=== PATIENT | male | born 1975 ===

== ENCOUNTER 2025-01-03 15:24 | Outpatient (AMB) | payer MEDICAID, SELFPAY ==
--- NOTE | 2025-01-03 15:30 | ACNOTE_ITS ---
Vital Signs 01/03/25 15:31 Height 1.7 m Height Method Stated Weight 94.404 kg Weight Measurement Method Standing Scale BMI 32.5 BP 146/84 H Blood Pressure Source Automatic Cuff Blood Pressure Location Left Upper Arm Position Sitting Respiration 16 Pulse 93 Pulse Source Monitor Temp 97 F Temp Source Temporal Artery Scan Pulse Oximetry (%) 97 Oxygen Delivery Method Room Air Allergies/Meds Allergies & Medications Allergies No Known Allergies Allergy (Verified 01/03/25 15:32) Medication Reconciliation fluticasone propionate 50 mcg/actuation nasal spray,suspension (Flonase Allergy Relief) 2 spray intranasal QDAY #16 grams 11/17/22 [Rx Confirmed 01/03/25] ibuprofen 800 mg tablet 800 mg PO Q8H PRN pain #30 tabs 11/28/22 [Rx Confirmed 01/03/25] hydrocodone 5 mg-acetaminophen 325 mg tablet 1 tab PO Q6H PRN pain #30 tabs 01/03/25 [Rx] MA Intake Visit Data Collection New Patient or Established: Established Patient (seen at [facility] within 3 years) Seen by Clinical Staff ONLY (RN/MA): No Pain Present Currently: No Pain scale:: 0 Pain Scale Used: Carvajal-Salazar/Numerical Applications Coordinator Required: No PCP or OBGYN visit in last 3 months: No Hx Now: No Do You Feel Safe at Home: Yes Authorities Contacted: N/A Smoking Status Smoking Status: Never smoker Immunization / Flu Flu Vaccine in the Last 12 Months: No Flu Vaccine Exclusion Criteria: No Exclusion Criteria Past Medical History Past Medical History NEUROLOGIC: Negative Neurological Disorders or Seizures CARDIAC: Negative Cardiac Disorders or Congestive Heart Failure RESPIRATORY: Negative Chronic Obstructive Pulmonary Disease (COPD) or Asthma GASTROINTESTINAL: Negative Gastrointestinal Disorders GENITOURINARY: Positive Genitourinary Disorders and Benign Prostatic Hyperplasia; Negative Renal Disease MUSCULOSKELETAL: Positive Arthritis ENDOCRINE: Negative Endocrine Disorders, Diabetes Mellitus Type 1 or Diabetes Mellitus Type 2 HEMATOLOGIC: Negative Blood Disorders or Sickle Cell Disease OTHER HISTORY: Positive Chicken Pox; Negative Blood Transfusions, Blood Transfusion Reaction, MRSA or Cancer Family History FAMILY HISTORY: Negative Family Cardiac Disorders or Family Cancer Social History SMOKING STATUS: Smoking status: Never smoker SECOND HAND EXPOSURE: second hand exposure: No ALCOHOL: Alcohol Intake: Current ALCOHOL FREQUENCY: Alcohol Intake Frequency: holidays/special occasions only HOUSING: Housing: House LIVES WITH: Lives With: Family Patient Portal Questionaires PHQ-9 PHQ-2 Over the last 2 weeks, how often have you been bothered by any of the following problems? 1. Little interest or pleasure in doing things: not at all Social History Living Situation History Housing: House Tobacco History Smoking Status: Never smoker Second Hand Smoke Exposure: No Alcohol History Alcohol Intake: Current Alcohol Intake Frequency: holidays/special occasions only Domestic Abuse History Do You Feel Safe at Home: Yes Review of Systems Report any current symptoms Only answer those that you have currently: Past Medical History Past Medical History Have you ever been diagnosed with any of the following: Neurological Problems Seizures: No Cardiology Problems Congestive Heart Failure: No Respiratory Problems Chronic Obstructive Pulmonary Disease (COPD): No Asthma: No Genital/Urinary Problems Renal Disease: No Benign Prostatic Hyperplasia: Yes Musculoskeletal Problems Arthritis: Yes Endocrine Problems Diabetes Mellitus Type 1: No Diabetes Mellitus Type 2: No Blood Problems Sickle Cell Disease: No Other Problems Blood Transfusions: No Blood Transfusion Reaction: No MRSA: No Chicken Pox: Yes Cancer: No History of Present Illness HPI Narrative Mr. Fatima is a 49-year-old Vietnamese-speaking male with past medical history of seasonal allergies who presented to [facility] with a chief complaint of right shoulder pain. Patient reported that his pain started on Monday, he was lifting heavy bags of animal feeds, did not experience any swelling, popping sound yet patient's pain was moderate, patient reported following up with [facility] clinic where on mobilization of arm during physical examination, patient's pain increased significantly, severe intensity, today patient seems to be in significant distress secondary to pain, on examination patient unable to elevate shoulder joint more than 30 degrees, patient was prescribed ibuprofen at [facility] which is unable to alleviate patient's pain. Patient did buy bandage from [employer] which he applied to his shoulder, yet has no improvement. Otherwise patient's blood pressure noted to be elevated, patient is in significant distress hence high suspicion of elevation in blood pressure secondary to pain. Will continue to monitor blood pressure. Will obtain x-ray of right shoulder, prescribed [place] as needed for pain and follow-up in clinic after obtaining x-ray. Patient counseled on pain management, pain scale, encouraged to manage pain with extra strength Tylenol for mild pain, ibuprofen for moderate pain and [place] for severe significant pain. Also educated patient about risks of pain medication, counseled to limit NSAID use. Patient verbalized understanding, will follow-up in clinic post x- ray results. Review of Systems Review of Systems Systems Reviewed: All systems reviewed, normal except as documented Objective/Exam Other Other exam information: Physical Exam General: Awake and in no acute distress. Conversational and non-toxic appearing. HEENT: Normocephalic, atraumatic, mucous membranes moist. Heart: Regular rate and rhythm, no murmurs. Lungs: Clear to auscultation with no wheezing or crackles. Abdomen: Soft, nondistended, nontender, positive bowel sounds. ?No guarding or rebound tenderness. Neurologic: Alert and oriented x3, no gross neurological deficit, and patient able to move all 4 extremities. Extremities: Decreased range of motion in right shoulder, patient unable to elevate shoulder joint more than 30 degrees, no swelling/edema noted, no gross dislocation noted. Patient does have shoulder kinesiology tape intact. Skin: No rash or ecchymoses. Assessment & Plan Diagnosis / Problem List (1) Right shoulder pain: Status: Acute Assessment & Plan: Patient has pain in right shoulder post lifting heavy bags of animal feed Did follow-up with [facility] previously, reports worsening pain, increasing progression On physical exam patient unable to elevate shoulder joint more than 30 degrees, no swelling/edema noted, no gross dislocation noted. Patient does have shoulder kinesiology tape intact. Plan: - prescribed [place] as needed for pain. - Patient counseled on pain management, pain scale, encouraged to manage pain with extra strength Tylenol for mild pain, ibuprofen for moderate pain and [place] for severe significant pain. Also educated patient about risks of pain medication, counseled to limit NSAID use. - Obtain right shoulder x-ray - Follow-up in clinic post x-ray - Will consider physical therapy referral/MRI on follow-up visit - Adequate rest, counseled to not sleep on right side, provide adequate rest to joint, patient is right-handed. (2) Elevated blood pressure reading: Status: Acute Assessment & Plan: Patient did have blood pressure reading of 146/84 on presentation, not on any antihypertensive medication Plan: - Patient's elevated blood pressure reading secondary to pain/acute distress - Monitor blood pressure Plan Overall plan: -Prescribed [place] as needed for pain, counseled on pain management -Obtain right shoulder x-ray, follow-up in clinic post x-ray results Case discussed with Attending Dr. Polanco. Aron Bustamante PGY1 Disclaimer: This note was dictated by speech recognition. Minor errors in front end java developer may be present due to voice recognition software. Orders: Orders XR shoulder RT min 2V 01/03/25 M25.519 - Pain in unspecified shoulder Physician Billing New Patient New Patient: E/M Level 2-CPT 50054 Office Procedures [facility] Level of Care Nursing/Assessment Patient Status: Established Patient Nursing Assessment/Reassessment: Medication Reconciliation, Update PMH in EMR and Vital Signs Coordination of Care: Complex Care and Chronic Disease 1-5, Consent,records obtained, informed consent, Education Simp Pt/Fam, Lab and Imaging orders and Staff clarify orders Established Patient Charge Established Patient Point Assignment: 100 Established Patient Point Charge: EP Level 3 (80-115)
[2025-01-03 15:31] VITALS: BP 146/84; PULSE 93; RESP 16; TEMP 36.1; O2SAT 97; BMI 32.5
== END 2025-01-03 16:30 | disposition home or self-care (01) ==
PROVIDERS: Supervising Provider Internal Medicine
DX: M25.511 Pain in right shoulder (principal); R03.0 Elevated blood-pressure reading, without diagnosis of hypertension
CPT/HCPCS: 99213; G0463

== ENCOUNTER → 2025-01-03 | Outpatient (CLI) | payer MEDICAID, SELFPAY ==
--- NOTE | 2025-01-03 16:10 | XR_ITS ---
Examination: Shoulder,right, 3 views Technique: Shoulder AP internal rotation, AP external rotation, Y view shoulder, 3 views Exam date and time :January 03, 2025 1613 hrs. Indications: Chronic shoulder pain. Findings: Opacities about the right acromioclavicular joint, unclear etiology No shoulder fracture or dislocation Moderate narrowing glenohumeral joint Impression: Moderate narrowing glenohumeral joint
== END | disposition home or self-care (01) ==
LOC: CDIM 15:59
PROVIDERS: Referring Provider Internal Medicine; Visit Provider Internal Medicine
DX: M25.811 Other specified joint disorders, right shoulder (principal)
CPT/HCPCS: 73030

== ENCOUNTER 2025-01-06 10:29 | Outpatient (AMB) | payer MEDICAID, SELFPAY ==
[2025-01-06 10:39] VITALS: BP 119/79; PULSE 90; RESP 18; TEMP 36.8; O2SAT 96; BMI 32.7
--- NOTE | 2025-01-06 10:39 | ACNOTE_ITS ---
Vital Signs 01/06/25 10:39 Height 1.7 m Height Method Stated Weight 94.517 kg Weight Measurement Method Standing Scale BMI 32.7 BP 119/79 Blood Pressure Source Automatic Cuff Blood Pressure Location Left Upper Arm Position Sitting Respiration 18 Pulse 90 Pulse Source Monitor Temp 98.2 F Temp Source Temporal Artery Scan Pulse Oximetry (%) 96 Oxygen Delivery Method Room Air Allergies/Meds Allergies & Medications Allergies No Known Allergies Allergy (Verified 01/06/25 10:39) Medication Reconciliation fluticasone propionate 50 mcg/actuation nasal spray,suspension (Flonase Allergy Relief) 2 spray intranasal QDAY #16 grams 11/17/22 [Rx Confirmed 01/06/25] hydrocodone 5 mg-acetaminophen 325 mg tablet 1 tab PO Q6H PRN pain #30 tabs 01/03/25 [Rx Confirmed 01/06/25] meloxicam 7.5 mg tablet 7.5 mg PO QDAY PRN pain (scale score 4-6) 15 days #15 tabs 01/06/25 [Rx] methylprednisolone 4 mg tablets in a dose pack (Medrol (Edi)) 4 mg PO QDAY #21 tabs 01/06/25 [Rx] pantoprazole 40 mg tablet,delayed release 40 mg PO QAM 15 days #20 tabs 01/06/25 [Rx] MA Intake Visit Data Collection New Patient or Established: Established Patient (seen at [facility] within 3 years) Seen by Clinical Staff ONLY (RN/MA): No Pain Present Currently: No Pain scale:: 0 Pain Scale Used: Carvajal-Salazar/Numerical Trial Paralegal Required: Yes PCP or OBGYN visit in last 3 months: Yes Hx Now: No Do You Feel Safe at Home: Yes Authorities Contacted: N/A Smoking Status Smoking Status: Never smoker Immunization / Flu Flu Vaccine in the Last 12 Months: No Flu Vaccine Exclusion Criteria: No Exclusion Criteria Past Medical History Past Medical History NEUROLOGIC: Negative Neurological Disorders or Seizures CARDIAC: Negative Cardiac Disorders or Congestive Heart Failure RESPIRATORY: Negative Chronic Obstructive Pulmonary Disease (COPD) or Asthma GASTROINTESTINAL: Negative Gastrointestinal Disorders GENITOURINARY: Positive Genitourinary Disorders and Benign Prostatic Hyperplasia; Negative Renal Disease MUSCULOSKELETAL: Positive Arthritis ENDOCRINE: Negative Endocrine Disorders, Diabetes Mellitus Type 1 or Diabetes Mellitus Type 2 HEMATOLOGIC: Negative Blood Disorders or Sickle Cell Disease OTHER HISTORY: Positive Chicken Pox; Negative Blood Transfusions, Blood Transfusion Reaction, MRSA or Cancer Family History FAMILY HISTORY: Negative Family Cardiac Disorders or Family Cancer Social History SMOKING STATUS: Smoking status: Never smoker SECOND HAND EXPOSURE: second hand exposure: No ALCOHOL: Alcohol Intake: Current ALCOHOL FREQUENCY: Alcohol Intake Frequency: holidays/special occasions only HOUSING: Housing: House LIVES WITH: Lives With: Family Patient Portal Questionaires PHQ-9 PHQ-2 Over the last 2 weeks, how often have you been bothered by any of the following problems? 1. Little interest or pleasure in doing things: not at all Social History Living Situation History Housing: House Tobacco History Smoking Status: Never smoker Second Hand Smoke Exposure: No Alcohol History Alcohol Intake: Current Alcohol Intake Frequency: holidays/special occasions only Domestic Abuse History Do You Feel Safe at Home: Yes Review of Systems Report any current symptoms Only answer those that you have currently: Past Medical History Past Medical History Have you ever been diagnosed with any of the following: Neurological Problems Seizures: No Cardiology Problems Congestive Heart Failure: No Respiratory Problems Chronic Obstructive Pulmonary Disease (COPD): No Asthma: No Genital/Urinary Problems Renal Disease: No Benign Prostatic Hyperplasia: Yes Musculoskeletal Problems Arthritis: Yes Endocrine Problems Diabetes Mellitus Type 1: No Diabetes Mellitus Type 2: No Blood Problems Sickle Cell Disease: No Other Problems Blood Transfusions: No Blood Transfusion Reaction: No MRSA: No Chicken Pox: Yes Cancer: No History of Present Illness HPI Narrative Mr. Fatima is a 49-year-old Iraqi-speaking male with past medical history of seasonal allergies who presented to [facility] with a chief complaint of right shoulder pain. Patient reported that his pain started on Monday, he was lifting heavy bags of animal feeds, did not experience any swelling, popping sound yet patient's pain was moderate, patient reported following up with [facility] where on mobilization of arm during physical examination, patient's pain increased significantly, severe intensity, today patient seems to be in significant distress secondary to pain, on examination patient unable to elevate shoulder joint more than 30 degrees, patient was prescribed ibuprofen at [facility] which is unable to alleviate patient's pain. Patient did buy bandage from [employer] which he applied to his shoulder, yet has no improvement. Otherwise patient's blood pressure noted to be elevated, patient is in significant distress hence high suspicion of elevation in blood pressure secondary to pain. Will continue to monitor blood pressure. Will obtain x-ray of right shoulder, prescribed [place] as needed for pain and follow-up in clinic after obtaining x-ray. Patient counseled on pain management, pain scale, encouraged to manage pain with extra strength Tylenol for mild pain, ibuprofen for moderate pain and [place] for severe significant pain. Also educated patient about risks of pain medication, counseled to limit NSAID use. Patient verbalized understanding, will follow-up in clinic post x- ray results. 01/06/2025: 49 year old men without significant medical history only seasonal allergies who came for x ray follow up results of right shoulder. x rays shows Moderate narrowing of glenohumeral joint, shoulder fracture or dislocation. Today patient stated feeling well denied any acute pain at the moment but had resolved with ibuprofen he also stated her daughter given some meloxicam and he even feels more relief of the pain he stated that right now pain is between 1?2 and the pain scale and does have recover a lot of range of movement. Otherwise during physical exam with noted pain on range of motion on the right shoulder that could be most likely secondary to impingement vs tear of supraspinatus muscle vs partial rotator cuff tear. Will give patient orthopedic surgeon referral Dr. Sevilla as well as referral for physical therapy. MRI of the right shoulder without contrast to rule out possible rotator cuff tear vs partial rota tor cuff tear. Meloxicam 7.5 g p.o. daily was prescribed for pain control and to stop ibuprofen. Medrol pack was ordered to relieve inflammation as well as Protonix p.o. daily to prevent gastritis. Follow-up in 3 weeks with MRI results. Review of Systems Review of Systems Systems Reviewed: All systems reviewed, normal except as documented Objective/Exam Narrative Physical exam: General: No acute distress, well appearing, alert, interactive. HEENT: NC/AT, PERRL, EOMI, Good conjugate gaze, moist mucous membranes, oropharynx clear. Neck: Supple, No masses, No adenopathy, carotid pulse 2+ bilaterally without bruits, No JVD, normal range of motion. Chest: Symmetrical, atraumatic, and with equal expansion , Nontender on palpation no deformity and no crepitus. CVS: S1 and S2 present, Regular rate and rhythm, No murmurs, rubs or gallops perceived during auscultation. Lungs: Normal respiratory effort, CTAB, no wheezing, rhonchi or rales perceived during auscultation, No intercostal or subcostal retraction. Abdomen : Soft, no tenderness to palpation, no guarding ,no rebound, +BS, no organomegaly. Extremities: No edema, warm well perfused, difficulty to elevate shoulder joint on the right upper extremity above the head strength and sensation intact, decreased range of movement right shoulder cap refill less than 2, +2 dp equal bilaterally, able to move all 4 extremities spontaneously. Skin: Intact, no rashes, no lesions, no erythema or jaundice noted Neuro: AOx4, cranial nerves II through XII intact, symmetric and sensation normal, no focal neurologic deficits noted, GCS 15 Psych: Appropriate mood and affect. Assessment & Plan Diagnosis / Problem List (1) Osteoarthritis of glenohumeral joint: Status: Acute Qualifiers: Laterality: right Qualified Code(s): M19.011 - Primary osteoarthritis, right shoulder Assessment & Plan: Patient came to the clinic for follow-up appointment after acute right shoulder pain after lifting heavy bags Right shoulder x-ray moderate narrowing of glenohumeral joint, shoulder fracture or dislocation. Patient stated that for now the patient had is well-controlled with ibuprofen and some meloxicam she thought it gave him. We will order Medrol pack to reduce inflammation to the patient refused to have intra-articular injection of steroids, we will order orthopedic surgery referral for further evaluation as well as MRI of the shoulder to assess for possible partial tear vs impingement of the supraspinatus vs rotator cuff. Patient was counseled about risk of NSAIDs and steroids and possible adverse effects could be gastritis, GI bleed, dyspepsia and acid reflux. Patient was counseled about risk of opioid pain medications Plan: ? MRI right shoulder without contrast ? Orthopedic surgeon referral Dr. Sevilla ? Physical therapy referral ? Medrol pack ? Meloxicam p.o. as needed pain scale 1?6 ? Stop ibuprofen ? Protonix p.o. daily (2) Right shoulder pain: Status: Acute Qualifiers: Chronicity: acute Qualified Code(s): M25.511 - Pain in right shoulder Assessment & Plan: Patient had acute pain in right shoulder post lifting heavy bags Did follow-up with [facility] initially Right shoulder x ray shows moderate narrowing of glenohumeral joint, shoulder fracture or dislocation. Plan: - Continue [place] as needed for pain 7?10 - Patient counseled on pain management, pain scale, encouraged to manage pain with extra strength Tylenol for mild pain, ibuprofen for moderate pain and [place] for severe significant pain. Orders: Orders MR shoulder RT wo con 01/06/25 M19.011 - Primary osteoarthritis, right shoulder, M25.511 - Pain in right shoulder, M75.111 - Incomplete rotator cuff tear or rupture of right shoulder, not specified as traumatic Referrals Orthopedics M25.511 - Pain in right shoulder Physical Therapy - Referral M19.011 - Primary osteoarthritis, right shoulder, M25.511 - Pain in right shoulder Additional Assessment Patient discussed with my attending Dr Sherri Eubanks MD PGY-3 Disclaimer: Despite multiple revisions, due to the dictation software being used, the document bellow may not be free of grammatical errors including phonetic/typographic errors. However, this does not deter from our commitment to providing health care in the patient's best interest in mind. Internal Medicine Attending Note: Patient examined and interviewed. Case discussed with and agree with note and management plan of Resident Physician as per Resident's Note above. Issues of concern for present visit are as follows: Follow-up visit. X-rays of shoulder reviewed by myself. There is no visible dislocation. There is perhaps some joint space narrowing and osteoarthritic change, but nothing that explains degree of pain that the patient is having. Note is made of some radiolucent spots on the shoulder, which I suspect are from the kinesiology tape that may have metal particles impregnated in it. Patient continues to have decreased range of motion of the shoulder with no significant improvement of pain. Patient is unable to complete a painful arc test. He is not able to actively hold arm positions of external rotation or abduction. Unable to complete drop arm test. Empty can test is positive. Liftoff test is equivocal. No scapular winging is noted. Suspect there may be rotator cuff tear or partial tear. We will order MRI today. Patient did not take narcotic pain medication. Patient wishes to try meloxicam which has helped him in the past, this will be prescribed today. Gonzalo Polanco MD Physician Billing Established Patient Established Patient: E/M Level 4-CPT 24439 Office Procedures [facility] Level of Care Nursing/Assessment Patient Status: Established Patient Nursing Assessment/Reassessment: Medication Reconciliation, Update PMH in EMR and Vital Signs Coordination of Care: Complex Care and Chronic Disease 1-5, Consent,records obtained, informed consent, Education Simp Pt/Fam, Lab and Imaging orders and Staff clarify orders Established Patient Charge Established Patient Point Assignment: 100 Established Patient Point Charge: EP Level 3 (80-115)
== END 2025-01-06 11:24 | disposition home or self-care (01) ==
LOC: HODAHC 10:29
PROVIDERS: Supervising Provider Student in an Organized Health Care Education/Training Program; Visit Provider Student in an Organized Health Care Education/Training Program
DX: M25.511 Pain in right shoulder (principal); M19.011 Primary osteoarthritis, right shoulder
CPT/HCPCS: 99213; G0463